=== PATIENT | female | born 1985 | race Caucasian/White ===

== ENCOUNTER 2017-04-28 00:08 | Inpatient (IN) | payer OTHER, SELFPAY ==
[2017-04-28] VITALS (10 sets, daily range): BP systolic 90–127; BP diastolic 28–84; PULSE 84–107; RESP 20; TEMP 36.4–37.7; O2SAT 94–98; BMI 47.2
[2017-04-28 00:06] LABS: ROM Internal Control Test YES-OK TO RESULT pt. (Internal QC)
[2017-04-28 00:07] LABS: ROM Patient Test POSITIVE (Negative)
[2017-04-28] MEDS: Lactated Ringers 1,000 ML 50 ML IV ×4 (00:28→15:10)
[2017-04-28 00:44] LABS: Hematocrit 35.5 % (37-47); Mean Corp Hgb Conc 33.8 g/gl (32-36); Mean Corpuscular Hgb 29.5 pg (27.0-32.0); Mean Corpuscular Volume 87.2 fL (81-99); Mean Platelet Vol. 10.8 fl (6.2-12.0); Platelet Count 296 K/mm3 (150-450); RBC Distribution Width CV 14.2 % (11.6-14.6); RBC Distribution Width SD 43.9 fl (35.1-43.9); Red Blood Count 4.07 M/mm3 (4.2-5.4); White Blood Count 8.7 K/mm3 (4.4-11.0)
[2017-04-28 00:51] LABS: Scan Indicated on CBC? Y/N NO
--- NOTE | 2017-04-28 02:20 | PCM.HP.OB ---
- Problem List (1) History of infertility Status: Chronic Comment: Hx of infertility for 8 years. IUI - donor sperm. (2) Obesity, morbid, BMI 40.0-49.9 Status: Chronic Comment: Pre- BMI (3) History of anxiety disorder Status: Chronic (4) PROM with onset of labor within 24 hours of rupture Status: Acute Qualifiers: PROM gestational age: full term Qualified Code(s): O42.02 - Full-term premature rupture of membranes, onset of labor within 24 hours of rupture History Date of Admission: 04/28/17 Final SHAGGY: 04/27/17 Final SHAGGY Source: US <20 weeks Gestational age: 40 Weeks and 1 Days History of this : Patient presented @ 6 wks x 16 visits. Hx of infertility, took patient 8 years to conceive. resulted from IUI with donor sperm; patient saw Dr. Mathew for care initially. Otherwise antepartum course has been uncomplicated. This evening patient presented noting large gush of clear fluid at 10:00pm on 04/27/17. Patient is known GBS negative. Pertinent Past Medical History: Morbid Obesity - Prepregnancy BMI = 40.9 Hx of Anxiety Disorder - diagnosed in 2015, patient has been off medication since 10/2015. Allergies sertraline [From Zoloft] Allergy (Verified 04/28/17 00:17) Other states it makes her feel bad Sulfa (Sulfonamide Antibiotics) Allergy (Verified 04/28/17 00:17) Rash sulfamethoxazole [From Bactrim] Allergy (Verified 04/28/17 00:17) Rash trimethoprim [From Bactrim] Allergy (Verified 04/28/17 00:17) Rash Current Medications Acetaminophen (Tylenol) 325 - 650 mg PO Q4H PRN PRN PRN Reason: PAIN OR FEVER >100.4F Al Hydroxide/Mg Hydroxide (Mylanta Ii) 15 - 30 ml PO Q4H PRN PRN PRN Reason: INDIGESTION Citric Acid/Sodium Citrate (Bicitra) 30 ml PO UD PRN Lactated Ringer's () 1,000 mls @ 50 mls/hr IV .Q20H CALVIN Last Admin: 04/28/17 00:28 Dose: 50 mls/hr Nalbuphine HCl (Nubain) 5 - 10 mg IV Q3H PRN PRN PRN Reason: PAIN (4-10/10) Ondansetron HCl (Zofran) 4 mg IV Q8H PRN PRN PRN Reason: NAUSEA Promethazine HCl (Phenergan (Ll)) 6.25 - 12.5 mg IV Q4H PRN PRN; Protocol PRN Reason: IF NAUSEA PERSISTS Sodium Chloride () 5 - 15 ml IV UD CALVIN Last Admin: 04/28/17 00:46 Dose: Not Given Smoking Status: Never smoker Alcohol: None Drug Use: none Number of Fetus(es): 1 Review of Systems Constitutional: Denies: Chills, Fever, Weight Change Eyes: Denies: Vision Change HEENT: Denies: Head Aches Cardiovascular: Denies: Chest Pain, Palpitations Respiratory: Denies: Cough, Shortness of breath at rest, Sputum production Gastrointestinal: Denies: Abdominal Pain, Nausea, Vomiting Genitourinary: Denies: Dysuria Gynecological: Reports: Vaginal discharge - Clear discharge c/w amniotic fluid. Denies: Vaginal bleeding Musculoskeletal: Reports: Back Pain - During ctx. Denies: Joint Pain, Joint Tenderness Skin: Denies: Rash, Wounds Neurological: Denies: Numbness, Tingling, Focal weakness Psychiatric: Denies: Depression, Homicidal Ideations, Suicidal Ideations Hematologic/ Lymphatic: Denies: Easy Bruising, Easy Bleeding Physical Exam Vitals: See nursing note for vital signs FHT baseline 125 moderate variability, no decels, + accels Ctx q 3-4 by palpation, strong to palpation. Not as easily discernible on tocometer tracing. General: Alert, Oriented x3, No apparent distress Cardiovascular: Regular rate, Regular Rhythm Lungs: Normal air movement Abdomen: No Hepato-splenomegaly, Gravid, Obese, - Extremities:: No edema Estimated gestational size: Appropriate for gestational size - By u/s at 38 week visit, EFW = 8#5oz. Presentation: Cephalic - Confirmed by bedside ultrasound Cervix Dilation (cm): 0.5 Station: -3 Effacement (%): 25 Assessment/Plan Active and Suspected Problems PROM with onset of labor within 24 hours of rupture (Acute) A: 31 y/o @ 40.1 weeks, Obesity affecting , PROM x 4 hours, Category 1 FHT P: 1) Admit patient, start IV and draw admission lab work at this time 2) Patient regularly ctx q 3-4 minutes, at this time will continue expectant management and will reassess SVE in the morning 3) Consider PO cytotec vs. IV Pitocin for labor augmentation in no or minimal cervical change or if contractions space out 4) Dr. Jacobs notified of admission Wendi Wliloughby CNM
--- NOTE | 2017-04-28 04:34 | PCM.PN.BLA ---
Progress Note S: Patient having more discomfort in lower back and sensation of pelvic pressure. Patient attempted use of Nitrous Oxide, no relief with this medication for pain relief. Patient interested in epidural at this time possibly to help promote rest. Decision made to do SVE. O: VSS, Afebrile FHT baseline 130, no decels, + accels, moderate variability Ctx q 3-5 minutes apart, palpate moderate to strong SVE = 1/70/-1 during ctx, -2 station in between. Narrow outlet noted possibly secondary to redundant vaginal tissue d/t body habitus, pelvimetry to sacrum WNL and midpelvis WNL. Normal pubic arch. A: 31 y/o @ 40.1 wks, PROM x 6 hours, Category 1 FHT, Spontaneous Labor P: 1) Continue expectant management at this time as patient has made cervical change 2) Discussed pain medication options, patient elects Nubain at this time 3) Encourage position changes, ambulation and PO hydration 4) If no relief after Nubain or once in active labor, patient may have epidural Wendi Willoughby CNM
[2017-04-28] MEDS: Nalbuphine 10 MG/ML Ampul IV ×2 (04:37→12:49)
--- NOTE | 2017-04-28 12:51 | PCM.PN.BLA ---
Progress Note pt seen at bedside, VE: 380/-2. IFM and IUPC still in place. Pitocin at 4mu. Contractions are not adequate montevideo units. FHR: 145 mod kade, + accels no decels. Category 1. Pt is afebrile- SROM occurred at approximately 10pm on 04/27/17.
--- NOTE | 2017-04-28 19:16 | PCM.PN.BLA ---
Progress Note pt seen at bedside and evaluated. Pitocin was held due to late decelerations. VE performed- /-2 IF[address]PC in place. Pt has not made cervical change since approximately 12:50pm today, Has been ruptured for 21 hours and on pitocin for approximately 9 hours with inadequate contractions but unable to increase or continue pitocin due to late decelerations. I anticipate the fetus to be approximately 9lbs based on latest ultrasound EFW. Pt does have narrow pubic arch and is morbidly obese. Pt was counseled on primary c/s for failed induction. counseled on risks of C/s including but not limited to bleeding, infection, wound dehiscence, injury to pelvic structures and impact on future and fertility. pt and verbalized understanding and wish to proceed. OR Team notified. Pre op abx ordered- Ancef 3g and Zithromax 500mg.
[2017-04-28] MEDS: Lactated Ringers 1,000 ML 100 ML IV (20:00)
[2017-04-28] MEDS: Oxytocin 30 units/NS 500 ml 30 UNITS/500 ML IV.SOLN 167 UNITS IV (20:10)
--- NOTE | 2017-04-28 20:18 | PCM.OB.CSR ---
Delivery Classification: DYAN Final SHAGGY: 04/27/17 Gestational age: 40 Weeks and 1 Days Indications: term 40.1 weeks, failed IOL, occasional late deceleration, remote from delivery. Membranes SROM for approximately 21 hours with pitocin for approximately 9 hours unable to achieve adequate contraction pattern. Indications for : Failed Induction, - - occasional late deceleration remote from delivery - Description of Procedure: Surgeon: Dr. Bing Curtis Property Maintenance Supervisor: ROOSEVELT Charles Preoperative diagnosis: Term gestation, failed induction, occasional late decelerations remote from delivery Postoperative diagnosis: same Findings: live male infant born, Delayed cord clamping x approx 30 seconds. Anesthesia: epdiural Complications: None Estimated blood loss:750 Implantable devices: None Operative note: After informed consent was obtained the patient was taken the operating room. She was then placed in the supine position. Howard straps placed for better visualization due to maternal Panus. She was prepped and draped in the normal sterile fashion. Anesthesia was found to be adequate. At this time a Pfannenstiel skin incision was made with a knife was carried down to the underlying layer of the fascia. The fascial incision was then extended laterally using curved Carlos scissor. Attention was then turned to the superior aspect of the fascial edge was grasped with 2 straight Axson clamps tented up and the rectus muscle dissected off sharply using curved Carlos scissor. Attention was then turned to the inferior aspect where again Axson clamps were placed in the rectus muscles were tented up and the fascia was dissected off sharply using the curved Carlos scissor. Rectus muscles were then in the midline bluntly and peritoneum was entered bluntly. Gentle opposing traction was placed. At this time the KAZ O retractor was placed without difficulty- a gentle sweep was performed to ensure no bowel was trapped behind the ring. At this time the vesicouterine peritoneum was identified. Scalpel was used to make a uterine incision in a low transverse fashion. The uterus was then entered bluntly gentle opposing traction was placed to extend this incision. 's head was brought to the uterine incision was delivered atraumatically. Cord was clamped and cut after approx 30 seconds then the was handed to the waiting nursery team. The Placenta was removed from the uterus. The uterus remained in the abdominal cavity. The uterus was cleared of all clots and debris using a lap. At this time the uterine incision was reapproximated using #1 Vicryl in a running locked fashion. A second layer using 1-Vicryl in interrupted figure of eight fashion was used to achieve good hemostasis and to imbricate the incision. Hemostasis was appreciated. Kaz O was removed then Gutters were cleared of all clots and debris. Uterine incision was reevaluated and noted to be of excellent hemostasis. Gisela placed. At this time the peritoneum was grasped with Kellys reapproximated using #2 Vicryl suture in a running fashion. Gisela placed over muscle. Fascia was then reapproximated using #1 PDS in a running fashion. Subcu layer was reapproximated with #2 0 plain gut suture and 2-0 vicyrl in two layers in an interrupted fashion. Subcu layer was closed using 4-0 vicryl in a Gerry needle in a subcu fashion. Dry sterile dressing was applied. Instrument lap needle count correct ?2. Anticipated normal postoperative course. pt will receive Lovenox in am as well as Diflucan for yeast dermatitis. Amniotic Membrane Rupture Type: Spontaneous Amniotic Fluid Description: Clear Placenta Disposition: [facility] Drain: Guillory to straight drain Cord Entanglement: None Nuchal Cord Compression: Without compression Cord Vessel Description: 3 Vessels Esitmated Blood Loss (ml): 750 Infant Gender: Male Delayed cord clamping: Yes Pre-op Antibiotic Given: - - ancef 3g and zitromax 500mg Pt instructed on risks of surgery: Bleeding, Anesthesia Risks, Infection, Injury to surrounding structure(s) including bowel and bladder Complications: None - Admit VTE Documentation VTE Present on Admission: Yes VTE Mechan Device Prophylaxis: SCD's VTE Pharm Prophylaxis ordered?: Yes
--- NOTE | 2017-04-29 09:08 | PN.OBGYN_ITS ---
Subjective: pain well controlled, average lochia, No N/V. Amanda. Po - Physical Exam General: Alert, Cooperative, No apparent distress Abdomen: Soft, Non-Distended, Tender - appropriately Extremities: Edema - 1+ Skin: Incision - bandage clean, dry and intact Vital Signs Temp Pulse Resp BP Pulse Ox 98.6 F 90 18 128/76 H 99 04/29/17 03:45 04/29/17 08:53 04/29/17 08:53 04/29/17 03:45 04/29/17 08:53 Oxygen Delivery Method Room Air Intake and Output for Last 24 Hours 04/27/17 04/28/17 04/29/17 23:59 23:59 23:59 Intake Total 4732 / 4732 Output Total 2500 / 2500 Balance 2232 / 2232 Laboratory Tests Past 24 Hrs 04/29/17 06:00 WBC 6.1 RBC 3.41 L Hgb 9.7 L Hct 29.8 L MCV 87.4 MCH 28.4 MCHC 32.6 RDW 14.5 RDW Differential 46.5 H Plt Count 224 MPV 10.2 Assessment/Plan POD#1 s/p primary c/s doing well routine care infant , resp. status better in [facility] for now
--- NOTE | 2017-04-30 10:58 | PCM.PN.OB ---
Subjective: pain well controlled, average lochia. No N/V. + flatus and BM. dia. regular diet. Working on - Physical Exam General: Alert, Cooperative, No apparent distress Abdomen: Soft, Non-Distended, Tender - appropriately Extremities: Edema - 1+ Skin: Incision - bandage clean, dry and intact Vital Signs Temp Pulse Resp BP Pulse Ox 98.4 F 86 16 98/66 98 04/30/17 08:00 04/30/17 08:00 04/30/17 08:00 04/30/17 08:00 04/29/17 19:30 Oxygen Delivery Method Room Air Intake and Output for Last 24 Hours 04/28/17 04/29/17 04/30/17 23:59 23:59 23:59 Intake Total 5732 / 5732 Output Total 4500 / 4500 Balance 1232 / 1232 Assessment/Plan POD#2 doing well going to regular nursery now work on
--- NOTE | 2017-05-01 10:27 | PCM.PN.OB ---
Subjective: Pain well controlled, average lochia, no N/V. + flatus, + BM. No Cp or SOB. No fevers or chills. Amanda. regular diet - Physical Exam General: Alert, Cooperative, No apparent distress Abdomen: Soft, Non-Distended, Tender - appropriately Extremities: Edema - 1+ Skin: Incision - bandage removed, incision intact Vital Signs Temp Pulse Resp BP Pulse Ox 98.0 F 87 18 102/60 98 05/01/17 09:00 05/01/17 09:00 05/01/17 09:00 05/01/17 09:00 04/29/17 19:30 Oxygen Delivery Method Room Air Intake and Output for Last 24 Hours 04/29/17 04/30/17 05/01/17 23:59 23:59 23:59 Intake Total 5732 / 5732 Output Total 4500 / 4500 Balance 1232 / 1232 Assessment/Plan PPD#3 doing well breast feeding ready for d/c
--- NOTE | 2017-05-01 10:35 | DS.PCM_ITS ---
Discharge Date and Diagnosis Date of Admission: 04/28/17 Date of Discharge: 05/01/17 - Secondary Discharge Diagnosis Chronic Problems History of infertility (Chronic) Hx of infertility for 8 years. IUI - donor sperm. Obesity, morbid, BMI 40.0-49.9 (Chronic) Pre- BMI History of anxiety disorder (Chronic) Hospital Course and Treatment Operations: - - Primary low transverse section Via Pfannenstiel skin incision Procedures: None Summary of Care Provided: The patient is a 31 year old female who was admitted at term with premature rupture of membranes on April 27, 2017. And induction was attempted. She had decelerations remote from delivery without significant cervical change despite Pitocin. Decision was made to proceed with section. Was performed on the right 2017. Postoperatively the patient did well. By postoperative day #3 she was ambulating, urinating, and tolerating regular diet without difficulty. She was discharged home with routine instructions and prescriptions. She is to follow-up in our office in 1 week or as needed. [] Home Medications: Medications to take at Discharge Tablet 1 tab PO DAILY 12/18/16 Ferrous Sulfate [Iron] 325 mg PO DAILY 03/18/17 Ibuprofen [Motrin] 600 mg PO Q6H PRN #60 tab 05/01/17 Oxycodone HCl/Acetaminophen [Percocet 5/325] 1 - 2 tab PO Q6H PRN PRN 7 Days # 28 tab 05/01/17 Primary Care Physician: James Todd [Primary Care Provider] - Meaningful Use Info Meaningful Use Diagnoses (Choose all that apply): None applicable
--- NOTE | 2017-05-01 10:39 | DCINST_ITS ---
Discharge Diet: No Restrictions Discharge Activity: Return to Normal Activity, May Not Drive - for 2 weeks, May not drive while taking narcotic pain medications., May Shower, May Take a Tub Bath - in 7 days. May resume sexual activity in: 4-6 weeks Lifting Restrictions: 20 pounds Additional Activity Instructions:: Nothing in the vagina for 4-6 weeks. You may return to work/school in 6 weeks. Call your doctor if your incision/area has: Continuous Slow Oozing, Sudden Increased Bleeding, Increased Pain/ Swelling, Increased Redness, Foul Smelling Discharge Call your doctor if you observe: Fever of 101 or Higher, Using more than one pad per hour - for 2 hours Suture Line Care: Avoid Pulling/Pushing, Avoid Pinching/Bending Cleanse incision/area with: Keep Dressing Clean & Dry Additional Instructions: If you experience any of the following, contact your healthcare provider. * Bleeding that soaks a pad every hour for 2 hours * Fever 100.4 or higher * Unrelieved incision or abdominal pain * Swelling, redness, discharge or bleeding from your incision or episiotomy site * Your incision begins to separate * Problems urinating (including inability to urinate or burning while urinating) . * Visual changes * Severe headache * Flu-like symptoms * Pain or redness in one of both of your breasts * Pain, warmth, tenderness or swelling in your legs, especially the calf area * Frequent nausea and vomiting * Symptoms of depression or anxiety If you experience any of the following, call 911 or go to the nearest Emergency Room. * Chest pain * Problems breathing * Seizure activity * Partial or complete paralysis of a body part, slurred speech, weakness or drooping of the face, or a sudden inability to walk or hold your balance Allergies/Adverse Reactions: Allergies sertraline [From Zoloft] Allergy (Verified 04/28/17 00:17) Other states it makes her feel bad Sulfa (Sulfonamide Antibiotics) Allergy (Verified 04/28/17 00:17) Rash sulfamethoxazole [From Bactrim] Allergy (Verified 04/28/17 00:17) Rash trimethoprim [From Bactrim] Allergy (Verified 04/28/17 00:17) Rash Medications to take at Discharge Tablet 1 tab PO DAILY 12/18/16 Ferrous Sulfate [Iron] 325 mg PO DAILY 03/18/17 Ibuprofen [Motrin] 600 mg PO Q6H PRN #60 tab 05/01/17 Oxycodone HCl/Acetaminophen [Percocet 5/325] 1 - 2 tab PO Q6H PRN PRN 7 Days # 28 tab 05/01/17 Follow-Up: Call to make an appointment with your doctor for an incision check in 1-2 weeks. You will also need a 6 week post- follow up appointment. Please Follow Up With: Bing Curtis MD - Call to make an appointment for an incision check in our office in 1 [phone] When: You will need a post check in 6 weeks. Primary Care Physician: James Todd [Primary Care Provider] -
== END 2017-04-28 20:30 | disposition designated cancer center or children's hospital (05) | DRG 765 ==
LOC: WPOUT 00:12
PROVIDERS: Admitting Provider Advanced Practice Midwife; Family Provider Family Medicine; PCP Family Medicine; Visit Provider Obstetrics & Gynecology
DX: O42.02 Full-term premature rupture of membranes, onset of labor within 24 hours of rupture (principal); O98.82 Other maternal infectious and parasitic diseases complicating childbirth; E66.01 Morbid (severe) obesity due to excess calories; O99.214 Obesity complicating childbirth; B37.2 Candidiasis of skin and nail; Z68.41 Body mass index [BMI] 40.0-44.9, adult; O76 Abnormality in fetal heart rate and rhythm complicating labor and delivery; Z3A.40 40 weeks gestation of pregnancy; Z37.0 Single live birth
CPT/HCPCS: 59050; 84112; 85027; 86850; 86900; 99218; J7120; A4216; G0378; J2405

== ENCOUNTER 2017-04-28 20:30 | Inpatient (IN) | payer OTHER, SELFPAY ==
[2017-04-28 23:40] VITALS: BP 104/60; PULSE 101; RESP 18; TEMP 36.8; O2SAT 95
[2017-04-28] MEDS: Lactated Ringers 1,000 ML 100 ML IV (23:45)
[2017-04-29] VITALS (16 sets, daily range): BP systolic 101–128; BP diastolic 49–76; PULSE 72–101; RESP 16–19; TEMP 36.4–37.5; O2SAT 95–100
[2017-04-29] MEDS: Ketorolac 30 MG/ML Syringe IV ×4 (04:12→22:33)
[2017-04-29] MEDS: 0.9% Saline Lock 10 ML Syringe IV ×4 (04:14→22:33)
[2017-04-29] MEDS: Enoxaparin 40 MG/0.4 ML Syringe SC (05:58)
[2017-04-29 06:22] LABS: Hematocrit 29.8 % (37-47); Hemoglobin 9.7 g/dl (12.0-15.0); Mean Corp Hgb Conc 32.6 g/gl (32-36); Mean Corpuscular Hgb 28.4 pg (27.0-32.0); Mean Corpuscular Volume 87.4 fL (81-99); Mean Platelet Vol. 10.2 fl (6.2-12.0); Platelet Count 224 K/mm3 (150-450); RBC Distribution Width CV 14.5 % (11.6-14.6); RBC Distribution Width SD 46.5 fl (35.1-43.9); Red Blood Count 3.41 M/mm3 (4.2-5.4); White Blood Count 6.1 K/mm3 (4.4-11.0)
[2017-04-29 06:26] LABS: Scan Indicated on CBC? Y/N NO
--- NOTE | 2017-04-29 09:06 | PCM.PN.OB ---
Subjective: pain well controlled, average lochia, No N/V. Amanda. Po - Physical Exam General: Alert, Cooperative, No apparent distress Abdomen: Soft, Non-Distended, Tender - appropriately Extremities: Edema - 1+ Skin: Incision - bandage clean, dry and intact Vital Signs Temp Pulse Resp BP Pulse Ox 98.6 F 90 18 128/76 H 99 04/29/17 03:45 04/29/17 08:53 04/29/17 08:53 04/29/17 03:45 04/29/17 08:53 Oxygen Delivery Method Room Air Intake and Output for Last 24 Hours 04/27/17 04/28/17 04/29/17 23:59 23:59 23:59 Intake Total 4732 / 4732 Output Total 2500 / 2500 Balance 2232 / 2232 Laboratory Tests Past 24 Hrs 04/29/17 06:00 WBC 6.1 RBC 3.41 L Hgb 9.7 L Hct 29.8 L MCV 87.4 MCH 28.4 MCHC 32.6 RDW 14.5 RDW Differential 46.5 H Plt Count 224 MPV 10.2 Assessment/Plan POD#1 s/p primary c/s doing well routine care infant , resp. status better in [facility] for now
[2017-04-29] MEDS: Lactated Ringers 1,000 ML 100 ML IV (09:51)
[2017-04-29] MEDS: Senna/Docusate Sodium 1 Tablet PO (09:52)
[2017-04-29] MEDS: Fluconazole 100 MG Tablet 200 MG PO (09:52)
[2017-04-30 04:00] VITALS: BP 110/68; PULSE 82; RESP 18; TEMP 36.6
[2017-04-30] MEDS: 0.9% Saline Lock 10 ML Syringe IV ×3 (04:28→17:11)
[2017-04-30] MEDS: Ketorolac 30 MG/ML Syringe IV ×4 (04:28→22:18)
[2017-04-30] MEDS: Enoxaparin 40 MG/0.4 ML Syringe SC (05:46)
[2017-04-30 08:00] VITALS: BP 98/66; PULSE 86; RESP 16; TEMP 36.9
[2017-04-30 15:15] VITALS: BP 99/58; PULSE 86; RESP 16; TEMP 37.3
[2017-04-30] MEDS: Senna/Docusate Sodium 1 Tablet PO (15:18)
[2017-04-30 21:00] VITALS: BP 100/50; PULSE 83; RESP 16; TEMP 36.8
[2017-05-01 02:00] VITALS: BP 122/76; PULSE 86; RESP 16; TEMP 36.9
[2017-05-01] MEDS: Enoxaparin 40 MG/0.4 ML Syringe SC (06:21)
[2017-05-01 09:00] VITALS: BP 102/60; PULSE 87; RESP 18; TEMP 36.7
--- NOTE | 2017-05-01 10:32 | PCM.DC.SUM ---
Discharge Date and Diagnosis Date of Admission: 04/28/17 Date of Discharge: 05/01/17 - Secondary Discharge Diagnosis Chronic Problems History of infertility (Chronic) Hx of infertility for 8 years. IUI - donor sperm. Obesity, morbid, BMI 40.0-49.9 (Chronic) Pre- BMI History of anxiety disorder (Chronic) Hospital Course and Treatment Operations: - - Primary low transverse section Via Pfannenstiel skin incision Procedures: None Summary of Care Provided: The patient is a 31 year old female who was admitted at term with premature rupture of membranes on April 27, 2017. And induction was attempted. She had decelerations remote from delivery without significant cervical change despite Pitocin. Decision was made to proceed with section. Was performed on the right 2017. Postoperatively the patient did well. By postoperative day #3 she was ambulating, urinating, and tolerating regular diet without difficulty. She was discharged home with routine instructions and prescriptions. She is to follow-up in our office in 1 week or as needed. [] Home Medications: Medications to take at Discharge Tablet 1 tab PO DAILY 12/18/16 Ferrous Sulfate [Iron] 325 mg PO DAILY 03/18/17 Ondansetron [Zofran Odt] 4 mg PO Q8H PRN PRN #10 tab 03/18/17 Primary Care Physician: James Todd [Primary Care Provider] - Meaningful Use Info Meaningful Use Diagnoses (Choose all that apply): None applicable
[2017-05-01 10:33] VITALS: BMI 47.2
--- NOTE | 2017-05-01 10:38 | PCM.DCCSEC ---
Discharge Diet: No Restrictions Discharge Activity: Return to Normal Activity, May Not Drive - for 2 weeks, May not drive while taking narcotic pain medications., May Shower, May Take a Tub Bath - in 7 days. May resume sexual activity in: 4-6 weeks Lifting Restrictions: 20 pounds Additional Activity Instructions:: Nothing in the vagina for 4-6 weeks. You may return to work/school in 6 weeks. Call your doctor if your incision/area has: Continuous Slow Oozing, Sudden Increased Bleeding, Increased Pain/ Swelling, Increased Redness, Foul Smelling Discharge Call your doctor if you observe: Fever of 101 or Higher, Using more than one pad per hour - for 2 hours Suture Line Care: Avoid Pulling/Pushing, Avoid Pinching/Bending Cleanse incision/area with: Keep Dressing Clean & Dry Additional Instructions: If you experience any of the following, contact your healthcare provider. Bleeding that soaks a pad every hour for 2 hours Fever 100.4 or higher Unrelieved incision or abdominal pain Swelling, redness, discharge or bleeding from your incision or episiotomy site Your incision begins to separate Problems urinating (including inability to urinate or burning while urinating). Visual changes Severe headache Flu-like symptoms Pain or redness in one of both of your breasts Pain, warmth, tenderness or swelling in your legs, especially the calf area Frequent nausea and vomiting Symptoms of depression or anxiety If you experience any of the following, call 911 or go to the nearest Emergency Room. Chest pain Problems breathing Seizure activity Partial or complete paralysis of a body part, slurred speech, weakness or drooping of the face, or a sudden inability to walk or hold your balance Allergies/Adverse Reactions: Allergies sertraline [From Zoloft] Allergy (Verified 04/28/17 00:17) Other states it makes her feel bad Sulfa (Sulfonamide Antibiotics) Allergy (Verified 04/28/17 00:17) Rash sulfamethoxazole [From Bactrim] Allergy (Verified 04/28/17 00:17) Rash trimethoprim [From Bactrim] Allergy (Verified 04/28/17 00:17) Rash Medications to take at Discharge Tablet 1 tab PO DAILY 12/18/16 Ferrous Sulfate [Iron] 325 mg PO DAILY 03/18/17 Ibuprofen [Motrin] 600 mg PO Q6H PRN #60 tab 05/01/17 Oxycodone HCl/Acetaminophen [Percocet 5/325] 1 - 2 tab PO Q6H PRN PRN 7 Days #28 tab 05/01/17 The following prescriptions were given: Oxycodone HCl/Acetaminophen [Percocet 5/325] 1 - 2 tab PO Q6H PRN PRN 7 Days #28 tab PRN Reason: Pain Ibuprofen [Motrin] 600 mg PO Q6H PRN #60 tab PRN Reason: Pain Follow-Up: Call to make an appointment with your doctor for an incision check in 1-2 weeks. You will also need a 6 week post- follow up appointment. Please Follow Up With: Bing Curtis MD - Call to make an appointment for an incision check in our office in 1 [phone] When: You will need a post check in 6 weeks. Primary Care Physician: James Todd [Primary Care Provider] -
[2017-05-01 14:15] VITALS: BP 107/64; PULSE 80; RESP 18; TEMP 37.3
[2017-05-01 17:00] VITALS: BP 130/84; PULSE 75; RESP 16; TEMP 36.8
[2017-05-01] MEDS: Ibuprofen 600 MG Tablet PO (17:03)
--- NOTE | 2017-05-01 17:34 | NURSING ---
pt discharged to home with baby and spouse. pt states she understands dc instructions pt given dc instructions for baby as well. pt given motrin prior to dc. pt escorted with baby and spouse out to waiting car.
== END 2017-05-01 17:10 | disposition home or self-care (01) | DRG 765 ==
PROVIDERS: Admitting Provider Obstetrics & Gynecology; Family Provider Family Medicine; PCP Family Medicine; Visit Provider Obstetrics & Gynecology
DX: O42.02 Full-term premature rupture of membranes, onset of labor within 24 hours of rupture (principal); O98.82 Other maternal infectious and parasitic diseases complicating childbirth; E66.01 Morbid (severe) obesity due to excess calories; O99.214 Obesity complicating childbirth; B37.2 Candidiasis of skin and nail; Z68.41 Body mass index [BMI] 40.0-44.9, adult; O76 Abnormality in fetal heart rate and rhythm complicating labor and delivery; Z3A.40 40 weeks gestation of pregnancy; Z37.0 Single live birth
CPT/HCPCS: 59050; 84112; 85027; 86850; 86900; 99218; J7120; A4216; G0378; J2405

== ENCOUNTER 2017-05-07 08:50 | Outpatient (CLI) | payer OTHER, SELFPAY | END 2017-05-07 10:30 | disposition home or self-care (01) | LOC: WPOUT 08:58 → WP 09:01 | PROVIDERS: Family Provider Family Medicine; PCP Family Medicine; Visit Provider Obstetrics & Gynecology | DX: Z39.1 Encounter for care and examination of lactating mother (principal) | CPT/HCPCS: 96152 ==